=== PATIENT | male | born 1980 | race Caucasian/White ===

== ENCOUNTER 2021-08-20 18:17 | Emergency (ER) | payer OTHER, SELFPAY ==
[2021-08-20 19:37] VITALS: BP 123/95; PULSE 98; RESP 18; TEMP 37.1; O2SAT 97; BMI 29.0
--- NOTE | 2021-08-20 20:19 | HMH.EDUTC ---
[facility] [place] Clinical Impression: Skin abscess Qualifiers: Site of cutaneous abscess: unspecified site Qualified Code(s): L02.91 - Cutaneous abscess, unspecified Cellulitis Qualifiers: Site of cellulitis: unspecified site Qualified Code(s): L03.90 - Cellulitis, unspecified Disposition: Home, Self-Care Condition on Discharge: Good Instructions: DI for Skin Abscess, Clindamycin, Mupirocin Additional Instructions: *Start antibiotic(s) immediately and be sure to take as ordered for the FULL length of time although you may be feeling better or start to see improvement in the next 24-48 hours *Monitor closely. Outlined redness so that you can monitor easier. Follow up immediately for new or worsening symptoms including but not limited to redness, swelling, streaking from site fever or chills. *Warm compress 15 minutes 3-4 times day *Never squeeze or pop these on your own. Seek immediate medical attention next time this occurs *Monitor Temp. Tylenol every 4 hours as needed and ibuprofen every 6 hours as needed (as long as your primary care doctor has told you that it is ok to take both. For fever, aches, pain. ER if no less that 101 despite Tylenol and ibuprofen Follow up with your family doctor/primary care physician in the next 48-72 hours if no improvement Call ENT and make appointment for further evaluation and examination Follow up with your Family Doctor Return if needed Straight to ER if any life threatening symptoms Prescriptions: clindamycin HCL [Clindamycin HCl] 300 mg PO Q8H 10 Days #30 cap Prescription Printed Mupirocin Calcium [Mupirocin 2% Cream 15gm] 1 applicatio TP TID 10 Days #15 gm Prescription Printed Referrals: Provider,Referral, MD [Primary Care Provider] - As needed Roxana Myers MD [Consulting Physician] - Luis Eduardo Marina MD [Staff Physician] - (call office for appointment) Time of Disposition: 20:31 Medical Decision Making - [place] Inquiry Pt receiving controlled substance: No [place] was queried for this patient: No Vital Signs: 08/20/21 19:37 Temperature 98.7 F Temperature Source Oral Pulse Rate [Left] 98 H Respiratory Rate 18 Blood Pressure [Right Arm] 123/95 H Blood Pressure Mean [Right Arm] 104 02 Sat by Pulse Oximetry 97 [facility] [place] - General Stated complaint: spot behine Left ear Time Seen by Provider: 08/20/21 20:19 Mode of Arrival: Ambulatory Source of Information: Patient Limitations: No Limitations Description of Symptoms (Recalled from Triage Doc. by RN): pt had a cyst behind his L ear ongoing for about a mo. it drains daily pinkish yellow. pt is c/o shotting pain down the side of his face and neck. facial and neck swelling is apparent. pt has a history of MRSA. HEENT Symptoms (Recalled from RN notes): No Resp Symptoms (Recalled from RN notes): No Skin Symptoms (Recalled from RN notes): Yes (abcess behind L ear with facial and neck swelling and pain) MS Symptoms (Recalled from RN notes): No Functional Status (Recalled from RN notes): na - History of Present Illness Provider Complaint: Patient states that he has been having a spot behind his left ear for a few weeks States that he had some left over antibiotics at home and when it started draining and swelling down into his jaw area he started the bactrim State that it has not got any worse and has got a little better but he is now out of the antibiotic and came in to see if he can get somemore - Related Data Previous Rx's Medication Instructions Recorded Mupirocin Calcium [Mupirocin 2% 1 applicatio TP TID 10 Days #15 gm 08/20/21 Cream 15gm] clindamycin HCL [Clindamycin HCl] 300 mg PO Q8H 10 Days #30 cap 08/20/21 Allergies Allergy/AdvReac Type Severity Reaction Status Date / Time INGREDIENT: NO KNOWN - NO Allergy Unknown Uncoded 10/11/17 15:17 KNOWN DRUG ALLERGY - Worker's Comp Is this a Worker's Comp case?: No [facility] History - Hepatitis A Screen Drug use history?: No High risk sexual behavio
[2021-08-20 20:41] VITALS: BP 123/95; PULSE 98; RESP 16; TEMP 37.1
== END 2021-08-20 20:42 | disposition home or self-care (01) ==
PROVIDERS: Emergency Provider Nurse Practitioner
DX: H60.02 Abscess of left external ear (principal)
CPT/HCPCS: 10060; 87070; 87077; 87186; 87205; 99202; G0463

== ENCOUNTER 2023-11-30 18:05 | Emergency (ER) | payer OTHER, SELFPAY ==
[2023-11-30 18:28] VITALS: BP 166/93; PULSE 69; RESP 16; TEMP 36.7; O2SAT 98; BMI 31.8
--- NOTE | 2023-11-30 18:38 | ED_ITS ---
Discharge Plan Disposition Patient Disposition: Home, Self-Care Condition: Good Prescriptions Prescriptions: New amoxicillin 875 mg tablet 875 mg PO Q12H Qty: 20 0RF fluticasone propionate [Flonase Allergy Relief] 50 mcg/actuation spray,suspension 2 spray intranasal DAILY Qty: 16 0RF Rx Instructions: administer into each nostril daily No Action clindamycin HCl 300 MG capsule 300 mg PO Q8H 10 Days Qty: 30 0RF mupirocin calcium 15 GM cream 1 applicatio TP TID 10 Days Qty: 15 0RF Rx Instructions: apply to area behind left ear Referrals Follow up/Referrals: Ata Sanchez MD [Primary Care Provider] - See instructions Nellie Vuong APRN [Nurse Practitioner] - See instructions (Call office for appointment) Activity Restrictions/Add. Instructions Additional Instructions/Restrictions: *Monitor Temp, Over the counter Motrin or Tylenol as directed/as needed Tylenol every 4 hours and Motrin every 6 hours (as long as your family doctor has told you that you can take it) for fever or pain. and straight to ER if unable to lower temp less than 101.0 after medication given Take medication as prescribed *Humidifier/Vaporizer Follow up with ENT for further evaluatio Follow up IMMEDIATELY for new or worsening symptoms or no Noticeable improvement over the next 48-72 hours. 911 for difficulty breathing or swallowing Clinical Impressions Clinical Impression: Otitis media Qualifiers: Otitis media type: unspecified Laterality: bilateral Qualified Code(s): H66.93 - Otitis media, unspecified, bilateral Instructions Patient Instructions: Middle Ear Infection, Ear Infections (Alternative Therapy) Discharge ED Provider: Angelic Bone [facility] General Stated complaint: neck pain ear pain Mode of Arrival: Ambulatory Source of Information: Patient Limitations: No Limitations Time Seen by Provider: 11/30/23 18:38 Description of Symptoms (Recalled from Triage Doc. by RN): Patient complaint of left ear pain for 2 months. Reports taking ibuprofen with no relief. HEENT Symptoms (Recalled from RN notes): Yes Resp Symptoms (Recalled from RN notes): No Skin Symptoms (Recalled from RN notes): No MS Symptoms (Recalled from RN notes): No Functional Status (Recalled from RN notes): wnl History of Present Illness Provider Complaint: Patient states that he has been having pain on and off in his left ear States that at times the pain will shoot down into his neck from his ears and other times it doesnt States that tonight his neck isnt hurting but he is having pain in both ears so he came in Related Data Previous Rx's Medication Instructions Recorded clindamycin HCl 300 mg capsule 300 mg PO Q8H 10 days #30 caps 08/20/21 mupirocin calcium 2 % topical cream 1 applicatio TP TID 10 days ##15 08/20/21 amoxicillin 875 mg tablet 875 mg PO Q12H #20 tabs 11/30/23 fluticasone propionate 50 2 spray intranasal DAILY #16 grams 11/30/23 mcg/actuation nasal spray,suspension (Flonase Allergy Relief) Allergies Allergy/AdvReac Type Severity Reaction Status Date / Time INGREDIENT: NO KNOWN - NO Allergy Unknown Uncoded 10/11/17 15:17 KNOWN DRUG ALLERGY Worker's Comp Is this a Worker's Comp case?: No [facility] Disclaimer: The information contained in this section may have been updated after the patient was seen, as this information can be updated by other users. Social History Smoking Status: Unknown if ever smoked alcohol intake: never current occupational status: employed Travel in the last 8 weeks: None ROS Obtained: Yes All systems reviewed & no additional complaints except as documented and Yes Systems reviewed as appropriate & no additional complaints except as documented Constitutional Constitutional: Reports system reviewed and no additional complaints, except as documented and Reports as per HPI ENT Ears, Nose, Mouth, and Throat: Reports system reviewed and no additional complaints, except as documented, Reports as per HPI and Reports otalgia Cardiovascular Cardiovascular: Reports system reviewed and no additional complaints, except as documented and Reports as per HPI Respiratory Respiratory: Reports system reviewed and no additional complaints, except as documented and Reports as per HPI Gastrointestinal Gastrointestingal: Reports system reviewed and no additional complaints, except as documented and as per HPI Physical Exam General General appearance: alert and in no apparent distress ENT ENT exam: Present mucous membranes moist Expanded ENT Exam TM/Canal exam: Bilateral TM: erythema and bulging Nose exam: Absent sinus tenderness Throat exam: Present normal inspection Neck Neck exam: Present normal inspection and full ROM; Absent trachea midline or tenderness Respiratory Respiratory exam: Present normal lung sounds bilaterally; Absent respiratory distress or wheezes Cardiovascular Cardiovascular exam: Present regular rate, normal rhythm and normal heart sounds Abdominal Exam Abdominal exam: Present soft and normal bowel sounds; Absent distention or tenderness Neurological Exam Neurological exam: Present alert, oriented X3 and normal gait Medical Decision Making [place] Inquiry Pt receiving controlled substance: No [place] was queried for this patient: No Vital Signs: 11/30/23 18:28 Temperature 98.0 F Temperature Source Oral Pulse Rate [Radial] 69 Respiratory Rate 16 Blood Pressure [Right Arm] 166/93 H Blood Pressure Mean [Right Arm] 117 Blood Pressure Source [Right Arm] Automatic Cuff Blood Pressure Position [Right Arm] Sitting 02 Sat by Pulse Oximetry 98 Oxygen Delivery Method Room Air
[2023-11-30 18:53] VITALS: BP 166/93; PULSE 69; RESP 16; TEMP 36.7; O2SAT 98
== END 2023-11-30 18:53 | disposition home or self-care (01) ==
PROVIDERS: Emergency Provider Nurse Practitioner; PCP Internal Medicine Adolescent Medicine
DX: H66.93 Otitis media, unspecified, bilateral (principal); M54.2 Cervicalgia
CPT/HCPCS: 99212; 99214; G0463

== ENCOUNTER 2025-07-25 10:49 | Emergency (ER) | payer OTHER, SELFPAY ==
[2025-07-25] VITALS (9 sets, daily range): BP systolic 164–183; BP diastolic 89–128; PULSE 75–91; RESP 14–18; TEMP 36.9–37; O2SAT 95–99; BMI 33.0
[2025-07-25] MEDS: FLUORESCEIN SODIUM 1MG STRIP 1 MG OP (11:42)
--- NOTE | 2025-07-25 11:47 | PC.NURSE ---
called [facility] for optho consult
--- NOTE | 2025-07-25 11:52 | ED_ITS ---
Discharge Plan Disposition Patient Disposition: Home, Self-Care Condition: Good Prescriptions Prescriptions: New cyclopentolate [Cyclogyl] 1 % drops 1 drp Eye-Both BID Qty: 15 0RF Rx Instructions: compress lacrimal sac for 1-2 minutes after instillation erythromycin 5 mg/gram (0.5 %) ointment 1 applic Eye-Both QID Qty: 7 0RF No Action amoxicillin 875 mg tablet 875 mg PO Q12H Qty: 20 0RF fluticasone propionate [Flonase Allergy Relief] 50 mcg/actuation spray,suspension 2 spray intranasal DAILY Qty: 16 0RF Rx Instructions: administer into each nostril daily clindamycin HCl 300 MG capsule 300 mg PO Q8H 10 Days Qty: 30 0RF mupirocin calcium 15 GM cream 1 applicatio TP TID 10 Days Qty: 15 0RF Rx Instructions: apply to area behind left ear Referrals Follow up/Referrals: Ata Sanchez MD [Primary Care Provider, Internal Medicine] - See instructions Activity Restrictions/Add. Instructions Additional Instructions/Restrictions: Please use Cyclogyl drops as needed, up to twice daily. This can help with the sensitivity to light. I also want you to use Erythromycin ointment 4 times daily. You can take Tylenol and motrin for pain. If you have any new or worsening symptoms please return. Otherwise, Ophthalmology will call you this evening and get you set up with an appointment tomorrow for further evaluation of the eyes Clinical Impressions Clinical Impression: Photokeratitis of both eyes Print Language Print Language: [place] Discharge ED Provider: Albino Ho Adult HPI General Chief complaint: Eye Problems Stated complaint: AO 07/25/2025 flash burn eyes from welding Time Seen by Provider: 07/25/25 11:15 Mode of Arrival: Ambulatory Source of Information: Patient Description of Symptoms (Recalled from ER Triage Doc. by RN): patient reports welding this am around 430am when both eyes began to burn. he believes he has flash burn History of Present Illness HPI narrative: This is a 45-year-old male patient, with past medical history of tobacco abuse, who is presenting to the emergency department today for evaluation of binocular pain. 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 Yesterday there was several instances where he lifted his eye shield for only a few seconds at a time. He did not immediately experience any foreign body sensation in the eye or ocular pain. However, he woke up this morning and stated that his eyes were so painful that he was having difficulty opening them. He has had excessive tearing from the eyes as well as some mild blurred vision today. He has not noticed any excessive redness. Related Data Previous Rx's ?Medication ?Instructions ?Recorded clindamycin HCl 300 mg capsule 300 mg PO Q8H 10 days # 30 caps 08/20/21 mupirocin calcium 2 % topical cream 1 applicatio TP TI D 10 days ##15 08/20/21 amoxicillin 875 mg tablet 875 mg PO Q12H #20 tabs 05/16 fluticasone propionate 50 2 spray intranasal DAILY #16 grams 11/30/23 mcg/actuation nasal spray,suspension (Flonase Allergy Relief) cyclopentolate 1 % eye drops 1 drp Eye-Both BID #15 mL 07/25/25 (Cyclogyl) erythromycin 5 mg/gram (0.5 %) eye 1 applic Eye-Both Q ID #7 grams 07/25/25 ointment Allergies Allergy/AdvReac Type Severity Reaction Status Date / Time No Known Allergies Allergy Unverified 07/25/25 12:31 [facility] Disclaimer: The information contained in this section may have been updated after the patient was seen, as this information can be updated by other users. Social History (Updated 11/30/23 @ 18:48 by Angelic Bone APRN) Smoking Status: Current every day smoker alcohol intake: never current occupational status: employed Travel in the last 8 weeks?: None Have you lived/traveled outside [place] in past 30 days?: No Contact w/someone who lives/traveled outside US past 30 days?: No Exposure to someone with infectious disease in past 14 days?: No Do you have a fever (greater than 100.4 F or 38 C)?: No Have you tested positive for COVID-19?: No Exposed to someone with COVID-19 in past 14 days?: No Do you have a sore throat?: No Do you have a cough?: No Do you have any weakness?: No Do you have any diarrhea?: No Are you experiencing any unusual bleeding?: No Do you have any muscle aches/pain?: No Do you have any abdominal pain?: No Are you experiencing loss of taste or smell?: No ROS Obtained: Yes Systems reviewed as appropriate & no additional complaints except as documented Physical Exam General General appearance: other (See MDM) Respiratory Respiratory exam: Present other (See MDM) Cardiovascular Cardiovascular exam: Present other (See MDM) Neurological Exam Neurological exam: Present other (See MDM) Medical Decision Making Medical Records Medical records reviewed: Yes I reviewed the patient's medical records. Screening: Per USPSTF and CDC recommendations, given the prevalence of disease in our region, it is our hospital?s policy to screen for HIV and viral Hepatitis for all patients aged 18 and over and those with ongoing risk factors. [place] Inquiry Pt receiving controlled substance: No [place] was queried for this patient: No Vital Signs: 07/25/25 10:51 07/25/25 10:54 07/25/25 10:55 Temperature 98.6 F Temperature Source Oral Pulse Rate 91 H 89 Pulse Rate [Right Radial] 85 Respiratory Rate 15 Blood Pressure 179/126 H 172/119 H Blood Pressure [Left Arm] 172/119 H Blood Pressure Mean 137 135 Blood Pressure Mean [Left Arm] 136 Blood Pressure Source [Left Arm] Automatic Cuff Blood Pressure Position [Left Arm] Sitting 02 Sat by Pulse Oximetry 98 95 97 Oxygen Delivery Method Room Air 07/25/25 11:00 07/25/25 11:15 07/25/25 11:24 Temperature Temperature Source Pulse Rate 89 90 85 Pulse Rate [Right Radial] Respiratory Rate 14 Blood Pressure 183/128 H 164/124 H Blood Pressure [Left Arm] Blood Pressure Mean 146 Blood Pressure Mean [Left Arm] Blood Pressure Source [Left Arm] Blood Pressure Position [Left Arm] 02 Sat by Pulse Oximetry 97 96 95 Oxygen Delivery Method 07/25/25 11:30 07/25/25 12:34 Temperature Temperature Source Pulse Rate 85 83 Pulse Rate [Right Radial] Respiratory Rate Blood Pressure 171/119 H 164/123 H Blood Pressure [Left Arm] Blood Pressure Mean Blood Pressure Mean [Left Arm] Blood Pressure Source [Left Arm] Blood Pressure Position [Left Arm] 02 Sat by Pulse Oximetry 96 96 Oxygen Delivery Method Orders (Tests/Meds): ED MEDICATIONS Discontinued Medications Generic Name Dose Route Start Last Admin Trade Name Freq PRN Reason Stop Dose Admin Fluorescein Sodium 1 mg 07/25/25 11:40 07/25/25 11:42 Fluorescein Sodium 1mg Strip OP 07/25/25 11:41 1 mg ONCE ONE Administration Tetracaine HCl 0 ml 07/25/25 11:40 07/25/25 11:41 Tetracaine 0.5% Opth Lou 15ml OP 07/25/25 11:41 Not Given ONCE ONE Tetracaine HCl 0 ml 07/25/25 12:17 07/25/25 12:18 Tetracaine 0.5% Opth Lou 15ml OP 07/25/25 12:18 15 ml ONCE ONE Administration ORDERS Category Date Time Status HIV Combo Stat Lab 07/25/25 11:01 Ordered Hepatitis C Ab Qual. W/ RFX Stat Lab 07/25/25 11:01 Ordered Medical Decision Narrative: In summary, this is a 45-year-old male patient who is presenting to the emergency department today with binocular pain, excessive eye tearing, and photophobia after welding yesterday. The patient's comorbidities include a past medical history of tobacco abuse. On initial evaluation of the patient they were resting comfortably in no acute distress and nontoxic in appearance. They are hemodynamically stable, saturating well room air, and are neurologically intact. On physical examination the patient does not have any evidence of significant conjunctival erythema. There is some mild conjunctival injection along the inferior aspect of the eye. The sclera is not hyperemic. His pupils are equal round and reactive to light. Differential diagnosis includes photokeratitis, exposure keratopathy, corneal abrasion, corneal ulceration, ocular foreign body, among others I have stained the patient's eyes with fluorescein and I do not appreciate any obvious corneal abrasions or ulcerations. Pressures are 22 in the right eye and 20 in the left eye. I have examined the patient under slit-lamp examination. I did not appreciate any minute foreign bodies embedded within the scleral, corneal, or conjunctival surface. I do not appreciate any obvious defects in the cornea either. My overall suspicion is that this patient has photokeratitis from welding yesterday. I had an interactive discussion with ophthalmology at the [facility]. They state that since the patient is having such significant photophobia that they would like for us to prescribe him Cyclogyl drops to use as needed. They also agree with sending him home on erythromycin ointment and analgesics. They are going to contact the patient this afternoon and set him up for an appointment in the morning to be evaluated in clinic. Patient knowledges understanding of this plan. At this time all questions have been answered and all parties are agreeable with the decision to discharge home. Critical Care Critical Care Time Critical Care Time: No
[2025-07-25] MEDS: TETRACAINE 0.5% OPTH SOL 15ML OP (12:18)
--- NOTE | 2025-07-25 12:48 | PC.NURSE ---
Called [facility] back to check on speaking with Opthamology, Put me on hold and were trying to reach out to see if they could connect us. Dr Ho is speaking with them now.
== END 2025-07-25 13:04 | disposition home or self-care (01) ==
PROVIDERS: Emergency Provider Student in an Organized Health Care Education/Training Program; PCP Internal Medicine Adolescent Medicine
DX: H16.133 Photokeratitis, bilateral (principal); W89.0XXA Exposure to welding light (arc), initial encounter
CPT/HCPCS: 99284